=== PATIENT | male | born 1975 | race African-American/Black ===

== ENCOUNTER 2019-11-22 17:09 | Emergency (ER) | payer SELFPAY ==
[~2019-11-22] VITALS: Ht 175.3 cm; Wt 104.3 kg
[2019-11-22 17:54] VITALS: Ht 175.3 cm; Wt 104.3 kg
[2019-11-22 20:41] VITALS: BP 169/103
== END 2019-11-22 20:41 | disposition home or self-care (01) ==
LOC: ED 17:09
DX: G44.209 Tension-type headache, unspecified, not intractable (principal); K08.89 Other specified disorders of teeth and supporting structures; I10 Essential (primary) hypertension; Z88.0 Allergy status to penicillin